=== PATIENT | male | born 1960 | race Caucasian/White ===

== ENCOUNTER 2016-10-29 06:33 | Emergency (ER) | payer MEDICARE, OTHER ==
--- NOTE | ~2016-10-29 | CT4 ---
[facility] A Service of [facility] RADIOLOGY TEXT RESULTS PATIENT: FRANK HUGGINS LOCATION: SED : 56 UNIT #: [id number] AGE: [address]: Talib Sainz MD SEX: M ORDER DR: [id number] [address] [address] [id number] E MR#: [id number] Acc #: [id number] NAME: FRANK HUGGINS : 1960 SEX: M STUDY DATE/TIME: 10/29/2016 6:37 UNIT: SED ROOM: STUDY DESCRIPTION: CT Abd and Pelv Wo Cont Attending Physician: Talib Sainz M.D. Ordering Physician: Talib Sainz M.D. Primary Care Physician: Chitra Bean M.D. MEDICAL IMAGING REPORT This report is preliminary unless electronic signature is present. EXAM CT of the abdomen and pelvis without contrast dated 10/29/[address] abdomen and pelvis without contrast dated 11/12/2015. HISTORY Bilateral flank pain for a few days. TECHNIQUE CT of the abdomen and pelvis were obtained without IV or oral contrast in the axial plane followed by sagittal and coronal reformats. This CT exam was performed with one or more of the following radiation dose reduction techniques: automatic exposure control, adjustment of mA and/or kV according to patient size, and iterative reconstruction. FINDINGS There is a 4.9 cm wide neck umbilical hernia sac which contains fat and 2 tiny bowel loops which partly extend into the nearby sac without any evidence of bowel obstruction. There is no free fluid in the peritoneum or within the hernia sac. No renal obstructing stones, hydronephrosis, or hydroureters. There is a nonobstructing punctate 1-2 mm calcification in the left superior renal calyx and anterior and inferior right renal calyx. Hypodense superior right renal and 3 left renal (superior and mid left kidney) are noted. The relatively larger one is in the superior and anterior left kidney measuring 2.5 x 3.0 cm. They have no Hounsfield units favoring simple cysts. They were also noted in the study from last year. The liver, spleen, adrenal glands, and pancreas do not demonstrate any significant abnormality. Aortoiliac stents are noted without contrast. Their patency is difficult to evaluate. There appears to be narrowed at the inferior aspect of the iliac portion, particularly on the right. Lack of oral contrast limits evaluation of bowel loops and lack of IV contrast limits evaluation of solid organs. There is a small hypodense STS. [facility] A Service of [facility] RADIOLOGY TEXT RESULTS PATIENT: FRANK HUGGINS LOCATION: [place] : 56 UNIT #: [id number] AGE: [address]: Talib Sainz MD SEX: M ORDER DR: 4.5 mm area in one of the small bowel loops in the right side of the lower abdomen close to the pelvis. It is noted on series 2, image 137. It could represent a small air pocket but a tiny lipoma in this region cannot be completely excluded given the slight difference in density. No obvious bowel obstruction, free fluid, or free air intraperitoneally. No evidence of acute significant diverticulitis, lymphadenopathy, or aneurysmal dilatation. No evidence of acute inflammatory to suggest acute appendicitis in the right lower quadrant. Well-defined appendix is difficult to visualize. Status post cholecystectomy. Degenerative changes are noted in the lumbar spine, severe at L4-5 with canal stenosis, bilateral facet changes, bilateral lateral recess stenosis, and neural foraminal narrowing. PELVIS: Urinary bladder is decompressed and its wall is uniformly thickened. Prostatic calcifications are noted and the prostate measures 4.1 x 4.5 cm. Seminal vesicles are within normal limits. Bowel loops do not demonstrate any significant abnormality. Incidentally noted is a 7 mm calcification in the left paramidline anterior pelvic fatty soft tissue. Benign incidental appearance. IMPRESSION 1. Nonobstructing punctate calcifications are noted, one in each kidney suggestive of nonobstructing stones. 2. Bilateral renal lesions are noted which are probably simple cysts. 3. There is a large fatty hernia in the umbilical region with a neck of 4.9 cm. It has predominantly fatty components with small 2 segments of bowel loops extending into it without evidence of bowel obstruction. 4. Degenerative changes are noted in the lumbar spine, worse at L4-5. 5. There is a small hypodense 4.5 mm area in one of the small bowel loops in the right side of the lower abdomen close to the pelvis. It is noted on series 2, image 137. It could represent a small air pocket but a tiny lipoma in this region cannot be completely excluded given the slight difference in density. It is, however, not clearly seen on the prior CT from 2016 and, hence, it could represent volume averaging of air. Attention to this region is suggested and follow-up studies is obtained in the future. Dictated by... Chaitanya Mejia M.D. THIS IS AN ELECTRONICALLY VERIFIED REPORT Chaitanya Mejia M.D. at 10/29/2016 4:55 PM CPR/aa [facility] A Service of [facility] RADIOLOGY TEXT RESULTS PATIENT: FRANK HUGGINS LOCATION: [place] : 56 UNIT #: [id number] AGE: [address]: Talib Sainz MD SEX: M ORDER DR: TD: 10/29/2016 09:49 JOB #: [id number] MEDICAL IMAGING REPORT Page 1 of 1
[2016-10-29 06:20] LABS: URINE SOURCE CLEAN CATCH
[2016-10-29 06:23] LABS: MICRO INDICATED? NO; URINE APPEARANCE CLEAR; URINE BILIRUBIN NEG (NEG); URINE BLOOD NEG (NEG); URINE COLOR YELLOW; URINE GLUCOSE NEG (NORM); URINE KETONE NEG (NEG); URINE LEUKOCYTE ESTERASE NEG (NEG); URINE NITRATE NEG (NEG); URINE PROTEIN NEG (NEG); URINE SPECIFIC GRAVITY <=1.005 (1.003-1.035); URINE UROBILINOGEN 0.2 MG/DL (NORM)
[~2016-10-29 06:33] MED LIST: ALPRAZOLAM; ALPRAZOLAM ER1 MG PO; ALPRAZOLAM1 MG PO; AMOXICILLIN; ANTIBIOTIC; APRISO0.375 GM; APRISO0.375 GM PO; ASACOL400 MG PO; ASPIRIN81 M1 PO; ASPIRIN81 M2 PO; ASTELIN137 MCG INH; BACLOFEN10 MG PO; BACTROBAN22 GM TP; BENTYL10 MG PO; BYSTOLIC10 MG; BYSTOLIC10 MG PO; BYSTOLIC2.5 MG PO; BYSTOLIC5 MG PO; CIPRO PO; CLARINEX5 MG PO; CLARITIN10 M3; CYANOCOBAL1000 MCG/M INJ; CYANOCOBALAM1000 MCG INJ; FLEXERIL PO; FLOMAX0.4 M1 PO; HYDROCODON-ACE1 EAC5 PO; HYDROCODONE-APA1 T30 PO; IMURAN50 MG PO; KEPPRA1000 MG PO; KEPPRA500 M1 PO; LEVETIRACETAM1000 MG; LEVETIRACETAM1000 MG PO; LIPITOR; LIPITOR PO; LORTAB 7.5-5001 TAB PO; LOTENSIN HCT 101 TAB PO; LOTENSIN PO; MECLIZINE HCL12.5 MG PO; MONTELUKAST SOD10 MG PO; NASAL RINSE; NASONEX17 GM; NORCO 10-325 TA1 TAB; NORCO 10/3251 TAB PO; NORVASC; OMEPRAZOLE20 M2 PO; OPANA ER10 M1; OXYCODONE-ACET1 EAC1 PO; PHENERGAN25 MG PO; PLAVIX; PLAVIX PO; PREDNISONE PO; PREVACID PO; PRILOSEC PO; PRILOSEC20 MG; PRILOSEC20 MG PO; SINGULAIR; SINGULAIR PO; VICODIN PO; VITAL-D RX TABL1 TAB PO; VITAMIN B-121000 MC1 INJ; VITAMIN B12; VITAMIN D350000 UNIT PO; VITAMIN D5000 UNIT PO; VITAMIN D50000 UNIT PO; XANAX1 MG PO; ZETIA; ZETIA PO; [UNRECOGNIZED DRUG - REMARK]
[2016-12-13] MEDS ORDERED: HYDROCODON-ACE1 EAC5 PO (10:14)
[2016-12-13] MEDS ORDERED: FLONASE 0.05% N16 GM INH (18:52)
[2016-12-13] MEDS ORDERED: MONTELUKAST SOD10 MG PO (18:52)
[2016-12-13] MEDS ORDERED: ALBUTEROL17 GM INH (18:53)
[2016-12-13] MEDS ORDERED: SPIRIVA RESPIMAT4 G1 INH (18:54)
[2016-12-13] MEDS ORDERED: BYSTOLIC10 MG PO (18:54)
[2016-12-13] MEDS ORDERED: ATORVASTATIN CA10 MG PO (18:56)
[2016-12-13] MEDS ORDERED: XANAX1 MG PO (18:57)
[2016-12-13] MEDS ORDERED: DESLORATADINE5 MG PO (18:58)
[2016-12-13] MEDS ORDERED: KEPPRA1000 MG PO (19:02)
[2016-12-13] MEDS ORDERED: ASPIRIN81 MG PO (19:02)
[2016-12-13] MEDS ORDERED: OMEPRAZOLE20 M1 PO (19:02)
== END 2016-10-29 08:14 | disposition home or self-care (01) ==
LOC: SED 06:33
PROVIDERS: Emergency Medicine
DX: M54.5 Low back pain (principal); Z88.5 Allergy status to narcotic agent; Z88.2 Allergy status to sulfonamides; Z88.8 Allergy status to other drugs, medicaments and biological substances; Z79.899 Other long term (current) drug therapy
CPT/HCPCS: 74176; 81003; 99284

== ENCOUNTER → 2016-12-04 | Outpatient (CLI) | payer MEDICARE ==
[~2016-12-04] MED LIST changes: +ALBUTEROL17 GM INH; +ASPIRIN81 MG PO; +ATORVASTATIN CA10 MG PO; +DESLORATADINE5 MG PO; +FLONASE 0.05% N16 GM INH; +OMEPRAZOLE20 M1 PO; +SPIRIVA RESPIMAT4 G1 INH
--- NOTE | ~2016-12-04 | CT2 ---
[facility] A Service of [facility] RADIOLOGY TEXT RESULTS PATIENT: FRANK HUGGINS LOCATION: [facility] : 56 UNIT #: [id number] AGE: [address]: JEN MINAYA APRN SEX: M ORDER DR: [id number] [id number] [facility]. [place], [place] [address] [id number] O MR#: [id number] [facility] #: [id number] NAME: FRANK HUGGINS. : 1960 SEX: M STUDY DATE/TIME: 12/04/2016 12:02 UNIT: [facility] ROOM: STUDY DESCRIPTION: CT Abd and Pelv W Cont Attending Physician: Jen Minaya Aprn Referring Physician: Jen Minaya Aprn Ordering Physician: Jen Minaya Aprn Primary Care Physician: Chitra Bean M.D. MEDICAL IMAGING REPORT This report is preliminary unless electronic signature is present EXAM CT abdomen and pelvis with contrast INDICATION Bloating and diarrhea for 1 week as well as right quadrant and left lower quadrant pain for 1 week. TECHNIQUE Axial Images were obtained through the dome of the diaphragm through symphysis pubis following administration of oral and intravenous contrast material. This CT exam was performed with one or more of the following radiation dose reduction techniques: automatic exposure control, adjustment of mA and/or kV according to patient size, and iterative reconstruction. Please note this examination was performed as a nonemergent outpatient study on 12/04/16 at 12:02 p.m. The patient apparently has presented to the emergency department, and a STAT read of this examination has been requested. FINDINGS Images through the lung bases are clear with exception of calcified granuloma and some minimal atelectasis. The stomach and proximal small bowel are within normal limits as are the adrenal glands and spleen. Pancreas also appears normal. The patient does have diffuse hepatic steatosis, but no focal hepatic lesions are seen. Gallbladder is surgically absent. Low-attenuation lesions are identified within the kidneys some of which are too small to accurately characterize but the largest of which appear to be benign renal cysts. This patient is status post aortobifemoral bypass grafting. This graft does appear to be STS. [facility] A Service of [facility] RADIOLOGY TEXT RESULTS PATIENT: FRANK HUGGINS LOCATION: [facility] : 56 UNIT #: [id number] AGE: [address]: JEN MINAYA [employer] CONSULTANT SEX: M ORDER DR: patent. 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 Prostate gland contains dystrophic calcifications. There is a fat-containing supraumbilical hernia with an additional hernia seen at the level of the umbilicus. Patient does have a loop of bowel, partially protruding into this area without evidence of obstruction. The patient has fatty infiltration of the wall of the terminal ileum. This finding can be seen in the setting of chronic inflammatory bowel disease. Similar findings were present in October 2016 as well. It was probably present in the mid 2015, but was less apparent at that time. Process does not appear to be resulting in any obstruction. I do not see any free fluid or adenopathy within the pelvis, and there is no pneumatosis or free air. Remainder of the GI tract appears unremarkable. The appendix is surgically absent. There is really minimal soft tissue stranding identified within the right lower quadrant; but given history, an active component of inflammation should certainly be considered. Review of bony windows. Does not demonstrate any aggressive osseous abnormalities. The patient does have some atherosclerotic plaque seen at the origins of the celiac axis and superior mesenteric artery which is incompletely evaluated on this examination as it is not an angiographic protocol CT. IMPRESSION 1. This patient is noted to have some fatty infiltration of the wall of the terminal ileum. This finding can be seen in the setting of chronic inflammatory bowel disease. Correlation with patient's history is recommended. I do not see any zulay bowel inflammatory stranding to suggest a superimposed acute process but certainly this cannot be excluded given patient's history, MRI would be more sensitive for evaluation of active inflammation and could be considered on a non emergent outpatient basis. At this point, there is no evidence of obstruction related to this process. No pneumatosis or free air is seen. There is no free fluid identified within the right lower quadrant or within the pelvis. 2. Diffuse hepatic steatosis makes the appendix and gallbladder surgically absent. 3. Changes of prior aortobifemoral bypass grafting. 4. Suspected bilateral renal cysts. 5. Please see the body of the report for any other additional incidental findings Dictated by... Carley Silva M.D. THIS IS AN ELECTRONICALLY VERIFIED REPORT Carley Silva M.D. at 12/06/2016 4:50 PM [facility] A Service of [facility] RADIOLOGY TEXT RESULTS PATIENT: FRANK HUGGINS LOCATION: [facility] : 56 UNIT #: [id number] AGE: [address]: JEN MINAYA APRN SEX: M ORDER DR: Alex TD: 12/05/2016 13:41 JOB #: [id number] MEDICAL IMAGING REPORT Page 1 of 1 COPY
[2016-12-04 14:06] LABS: POC - CREATININE 1.08 mg/dL (0.64-1.27); POC - GFR >60.0 mL/min (>60)
== END | disposition home or self-care (01) ==
LOC: CCAT 10:55
PROVIDERS: Nurse Practitioner Family
DX: K46.9 Unspecified abdominal hernia without obstruction or gangrene (principal); K76.0 Fatty (change of) liver, not elsewhere classified; Z90.49 Acquired absence of other specified parts of digestive tract; Z98.890 Other specified postprocedural states
CPT/HCPCS: 74177; 82565; Q9967

== ENCOUNTER 2016-12-05 06:58 | Emergency (ER) | payer MEDICARE ==
--- NOTE | ~2016-12-05 | CR2 ---
[facility] A Service [facility] RADIOLOGY TEXT RESULTS PATIENT: FRANK HUGGINS LOCATION: [facility] : 56 UNIT #: [id number] AGE: [address]: Flaco Newberry MD SEX: M ORDER DR: [id number] [place] [id number] [facility]. [place], [place] [address] [id number] E MR#: [id number] Acc #: [id number] NAME: FRANK HUGGINS : 1960 SEX: M STUDY DATE/TIME: 12/05/2016 8:54 UNIT: [facility] ROOM: STUDY DESCRIPTION: CR Abdomen Acute Series Attending Physician: Flaco Newberry M.D. Ordering Physician: Flaco Newberry M.D. Primary Care Physician: Chitra Bean M.D. MEDICAL IMAGING REPORT This report is preliminary unless electronic signature is present EXAM Acute abdominal series INDICATION Abdominal pain, nausea and diarrhea. FINDINGS On the upright chest radiograph, heart size is within normal limits. Patient has chronic-appearing scarring identified within the right mid lung. No pneumothorax, pleural effusion or acute infiltrate is seen. No free air is seen beneath the diaphragm. Cholecystectomy clips are seen within the right upper quadrant. Patient has oral contrast material seen throughout the colon. Patient underwent a CT scan of the abdomen and pelvis on December 04, 2016 and this contrast is related to that. Currently, there is no evidence of mechanical bowel obstruction. IMPRESSION No acute intraabdominal or intrapelvic process is seen. Please see the separately dictated report for the patient's CT of the abdomen and pelvis performed yesterday. Dictated by... Carley Silva M.D. THIS IS AN ELECTRONICALLY VERIFIED REPORT Carley Silva M.D. at 12/06/2016 4:49 PM AFF/dominik TD: 12/05/2016 14:52 JOB #: [id number] [facility] A Service [facility] RADIOLOGY TEXT RESULTS PATIENT: FRANK HUGGINS LOCATION: [facility] #: [id number] : 56 UNIT #: [id number] AGE: [address]: Flaco Newberry MD SEX: M ORDER DR: MEDICAL IMAGING REPORT Page 1 of 1 COPY
[~2016-12-05 06:58] MED LIST changes: -ALBUTEROL17 GM INH; -ASPIRIN81 MG PO; -ATORVASTATIN CA10 MG PO; -DESLORATADINE5 MG PO; -FLONASE 0.05% N16 GM INH; -OMEPRAZOLE20 M1 PO; -SPIRIVA RESPIMAT4 G1 INH
[2016-12-05 07:40] LABS: BASOPHIL# 0.1 X10e3 (0-0.3); BASOPHIL% 0.8 % (0-2.5); EOSINOPHIL# 0.1 X10e3 (0-0.7); EOSINOPHIL% 1.4 % (0.0-7.0); HEMATOCRIT 47.3 % (38.0-50.0); HEMOGLOBIN 15.9 gm/dL (13.0-16.0); LYMPHOCYTE% 19.1 % (17.0-45.0); MEAN CELL VOLUME 89.9 FL (83-96); MEAN CORPUSCULAR HEMOGLOBIN 30.2 PG (28-34); MEAN CORPUSCULAR HGB CONC 33.6 g/dL (30-36); MONOCYTE# 0.8 X10e3 (0-1.0); MONOCYTE% 7.8 % (3.0-12.0); NEUTROPHIL# 7.2 X10e3 (1.5-7.1); NEUTROPHIL% 70.9 % (40-75); PLATELET COUNT 233 X10e3 (140-420); RED BLOOD COUNT 5.26 X10e (3.90-5.60); RED CELL DISTRIBUTION WIDTH 13.8 % (11.0-15.5); WHITE BLOOD COUNT 10.2 X10e3 (4.0-10.5)
[2016-12-05 07:41] LABS: DIFF IND NO
[2016-12-05 08:02] LABS: ALBUMIN SERUM 3.7 g/dL (3.5-5.0); BILIRUBIN, DIRECT 0.1 mg/dL (0.0-0.2); BILIRUBIN,INDIRECT 0.5 mg/dL (0.0-0.9); BILIRUBIN,TOTAL 0.6 mg/dL (0.2-2.0); CALCIUM SERUM 9.2 mg/dL (8.4-10.2); GLOM FILT RATE Estimated 82.6 mL/min (>60); POTASSIUM 3.3 mmol/L (3.5-5.1); PROTEIN TOTAL SERUM 7.6 g/dL (6.0-8.3)
[2016-12-05 08:52] LABS: URINE SOURCE CLEAN CATCH
[2016-12-05 08:59] LABS: URINE APPEARANCE CLEAR; URINE BILIRUBIN NEG (NEG); URINE BLOOD NEG (NEG); URINE COLOR YELLOW; URINE GLUCOSE NEG (NEG); URINE KETONE NEG (NEG); URINE LEUKOCYTE ESTERASE NEG (NEG); URINE NITRATE NEG (NEG); URINE PH 5.5 (5-8); URINE PROTEIN NEG (NEG); URINE SPECIFIC GRAVITY 1.015 (1.003-1.035); URINE UROBILINOGEN 0.2 MG/DL (NEG)
[2016-12-05 09:10] LABS: CULTURE INDICATED? NO
[2016-12-13] MEDS ORDERED: HYDROCODON-ACE1 EAC5 PO (10:14)
[2016-12-13] MEDS ORDERED: MONTELUKAST SOD10 MG PO (18:52)
[2016-12-13] MEDS ORDERED: FLONASE 0.05% N16 GM INH (18:52)
[2016-12-13] MEDS ORDERED: ALBUTEROL17 GM INH (18:53)
[2016-12-13] MEDS ORDERED: BYSTOLIC10 MG PO (18:54)
[2016-12-13] MEDS ORDERED: SPIRIVA RESPIMAT4 G1 INH (18:54)
[2016-12-13] MEDS ORDERED: ATORVASTATIN CA10 MG PO (18:56)
[2016-12-13] MEDS ORDERED: XANAX1 MG PO (18:57)
[2016-12-13] MEDS ORDERED: DESLORATADINE5 MG PO (18:58)
[2016-12-13] MEDS ORDERED: KEPPRA1000 MG PO (19:02)
[2016-12-13] MEDS ORDERED: ASPIRIN81 MG PO (19:02)
[2016-12-13] MEDS ORDERED: OMEPRAZOLE20 M1 PO (19:02)
== END 2016-12-05 10:00 | disposition home or self-care (01) ==
LOC: CED 06:58
PROVIDERS: Emergency Medicine
DX: R10.84 Generalized abdominal pain (principal); R11.2 Nausea with vomiting, unspecified; R19.7 Diarrhea, unspecified; J44.9 Chronic obstructive pulmonary disease, unspecified; I73.9 Peripheral vascular disease, unspecified; Z88.1 Allergy status to other antibiotic agents; Z88.8 Allergy status to other drugs, medicaments and biological substances
CPT/HCPCS: 74022; 80048; 80076; 81003; 82150; 83605; 83690; 85025; 96361; 96374; 96375; 99284; J1885; J2270; J2405

== ENCOUNTER → 2016-12-10 | Outpatient (CLI) | payer MEDICARE ==
[~2016-12-10] MED LIST changes: +ALBUTEROL17 GM INH; +ASPIRIN81 MG PO; +ATORVASTATIN CA10 MG PO; +DESLORATADINE5 MG PO; +FLONASE 0.05% N16 GM INH; +OMEPRAZOLE20 M1 PO; +SPIRIVA RESPIMAT4 G1 INH
[2016-12-10 10:49] LABS: HEMOGLOBIN 15.9 gm/dL (13.0-16.0); MEAN CELL VOLUME 90.1 FL (83-96); MEAN CORPUSCULAR HEMOGLOBIN 29.9 PG (28-34); MEAN CORPUSCULAR HGB CONC 33.1 g/dL (30-36); MEAN PLATELET VOLUME 7.8 FL (6.5-11.5); RED BLOOD COUNT 5.33 X10e (3.90-5.60); RED CELL DISTRIBUTION WIDTH 13.9 % (11.0-15.5); WHITE BLOOD COUNT 8.6 X10e3 (4.0-10.5)
[2016-12-10 10:58] LABS: URINE APPEARANCE CLEAR; URINE BILIRUBIN NEG (NEG); URINE BLOOD NEG (NEG); URINE COLOR YELLOW; URINE GLUCOSE NEG (NEG); URINE KETONE NEG (NEG); URINE LEUKOCYTE ESTERASE NEG (NEG); URINE NITRATE NEG (NEG); URINE PROTEIN NEG (NEG); URINE SPECIFIC GRAVITY 1.007 (1.003-1.035); URINE UROBILINOGEN 0.2 MG/DL (NEG)
[2016-12-10 11:19] LABS: URINE SOURCE CLEAN CATCH
[2016-12-10 11:33] LABS: ALBUMIN SERUM 3.8 g/dL (3.5-5.0); BILIRUBIN,TOTAL 0.8 mg/dL (0.2-2.0); BUN/CREATININE RATIO 11.25; CALCIUM SERUM 9.3 mg/dL (8.4-10.2); CREATININE SERUM 0.8 mg/dL (0.6-1.4); GLOM FILT RATE Estimated 98.5 mL/min (>60); POTASSIUM 4.1 mmol/L (3.5-5.1); PROTEIN TOTAL SERUM 6.9 g/dL (6.0-8.3)
== END | disposition home or self-care (01) ==
LOC: CLAB 10:00
PROVIDERS: Nurse Practitioner
DX: R10.31 Right lower quadrant pain (principal); R19.7 Diarrhea, unspecified; R11.2 Nausea with vomiting, unspecified
CPT/HCPCS: 36415; 80053; 81003; 83630; 85027; 87328; 87329; 87493

== ENCOUNTER → 2016-12-13 | Day surgery (SDC) | payer MEDICARE, OTHER ==
--- NOTE | ~2016-12-13 | OR ---
Unit #: [id number] #: [id number] Patient: FRANK HUGGINS [id number] [place], [place] [address] [id number] O MR#: [id number] NAME: FRANK HUGGINS ROOM: Date of Procedure: 12/13/2016 Admission Date: 12/13/2016 Surgeon: Junito Schulz M.D. : 1960 Attending Physician: Junito Schulz M.D. Primary Care Physician: Chitra Bean M.D. OPERATIVE REPORT PREOPERATIVE DIAGNOSES Dyspepsia, diarrhea, left and right lower quadrant abdominal pain. In addition, the patient has abnormal gastrointestinal x-ray. PROCEDURES PERFORMED Upper gastrointestinal endoscopy and biopsy as well as colonoscopy with polypectomy and colonoscopy with biopsies. POSTOPERATIVE DIAGNOSES For upper endoscopy: 1. The patient had moderate prepyloric antral erosive gastritis. This was fairly diffuse. 2. Rest of the examination up to third part of duodenum was normal. A biopsy was obtained from the antrum for CLOtest. In addition, biopsies were also obtained from the deep descending duodenal folds to look for any evidence of partial villous atrophy or celiac disease. For colonoscopy: 1. A single sessile polyp in the mid sigmoid colon. This was about 7 to 8 mm in size and was removed using snare polypectomy. 2. Mild sigmoid and descending colon diverticulosis. 3. Rest of the examination up to cecum and terminal ileum was normal. Multiple random colonic biopsies were obtained from throughout the colon to rule out microscopic or collagenous colitis. RECOMMENDATIONS The patient will be started on p.r.n. Lomotil. He will be followed up in the office in 3 months' time. SEDATION USED MAC. DESCRIPTION OF PROCEDURE Following detailed explanation of the potential risks and complications of an upper endoscopy and a colonoscopy, namely perforation, bleeding, and complications related to sedation, the patient was brought to GI lab and laid in the left lateral decubitus position. Lubricated tip of the Olympus video upper endoscope was passed through the bite block into the proximal esophagus under direct vision. The entire esophageal mucosa was examined and appeared normal. Z-line was nicely demarcated, there being no esophagitis or hiatus hernia. The scope was then advanced into the gastric cavity and the latter was insufflated. Mucosa of the fundus, body, and antrum was examined and the patient was noted to have moderate Unit #: [id number] #: [id number] Patient: FRANK HUGGINS prepyloric antral diffuse erythema, erosions, and gastritis. Pylorus was intubated with visualization of the normal duodenal bulb and second and third part of the duodenum. Upon withdrawal and retroflexion, incisura, cardia, and greater curve was examined and a biopsy obtained from the antrum for CLOtest. In addition, biopsies were also obtained from the deep descending duodenal folds to look for any evidence of partial villous atrophy or celiac disease. The scope was then withdrawn in the distal esophagus. The entire esophageal mucosa was examined all the way up to pharynx, no additional findings were noted. The examination table was then turned by 180 degrees and the patient positioned for a colonoscopy. A digital rectal examination was performed, which was normal. Lubricated tip of the Olympus video colonoscope was inserted through the anus and advanced under direct vision. The scope was advanced past rectosigmoid into descending colon. Scant small diverticula were noted in this area. The scope tip was then navigated all the way up to cecum with visualization of the ileocecal valve and the appendiceal orifice. Preparation was excellent with good visualization and photodocumentation was obtained. Last few inches of the terminal ileum were also visualized after intubation of the ileocecal valve and appeared normal. Successive segments of the colonic mucosa were examined upon withdrawal and appeared unremarkable except for a single sessile polyp in the mid sigmoid colon. The latter was about 8 mm in size and it was removed using snare polypectomy. No additional polyps were noted. Other than the scant diverticula, no other abnormalities were noted. Multiple random colonic biopsies were obtained from throughout the colon to rule out microscopic or collagenous colitis. The patient did have small internal hemorrhoids at the anal verge. The scope was then withdrawn and the patient returned to the recovery area. He tolerated the procedure without any postprocedure complications. Dictated byAmadeo Mcdaniel TD: 12/13/2016 14:19 JOB #: [id number] OPERATIVE REPORT Page 1 of 1 X Junito Schulz MD PROCEDURE OPERATIVE NOTE
== END | disposition home or self-care (01) ==
LOC: COPS 07:00
PROVIDERS: Internal Medicine Gastroenterology
PROC: 0DB78ZX Excision of Stomach, Pylorus, Via Natural or Artificial Opening Endoscopic, Diagnostic (ICD-10-PCS; principal; 2016-12-13 10:30)
PROC: 0DB98ZX Excision of Duodenum, Via Natural or Artificial Opening Endoscopic, Diagnostic (ICD-10-PCS; 2016-12-13 10:30)
PROC: 0DBN8ZX Excision of Sigmoid Colon, Via Natural or Artificial Opening Endoscopic, Diagnostic (ICD-10-PCS; 2016-12-13 10:30)
PROC: 0DBE8ZX Excision of Large Intestine, Via Natural or Artificial Opening Endoscopic, Diagnostic (ICD-10-PCS; 2016-12-13 10:30)
DX: K29.60 Other gastritis without bleeding (principal); K29.80 Duodenitis without bleeding; K63.5 Polyp of colon; K57.30 Diverticulosis of large intestine without perforation or abscess without bleeding; K64.8 Other hemorrhoids; N40.0 Benign prostatic hyperplasia without lower urinary tract symptoms; J44.9 Chronic obstructive pulmonary disease, unspecified; K21.9 Gastro-esophageal reflux disease without esophagitis; F17.200 Nicotine dependence, unspecified, uncomplicated; I73.9 Peripheral vascular disease, unspecified; G40.89 Other seizures; G89.29 Other chronic pain; M54.9 Dorsalgia, unspecified; Z95.820 Peripheral vascular angioplasty status with implants and grafts; Z79.899 Other long term (current) drug therapy; Z79.891 Long term (current) use of opiate analgesic; Z87.442 Personal history of urinary calculi; Z90.49 Acquired absence of other specified parts of digestive tract; Z98.890 Other specified postprocedural states; Z88.5 Allergy status to narcotic agent; Z88.4 Allergy status to anesthetic agent; Z88.2 Allergy status to sulfonamides
CPT/HCPCS: 87077; 88305

== ENCOUNTER 2017-02-13 19:39 | Emergency (ER) | payer MEDICARE, OTHER ==
[~2017-02-13] VITALS: Ht 170.2 cm; Wt 95.2 kg
--- NOTE | ~2017-02-13 | CR72 ---
[facility] A Service of [facility] RADIOLOGY TEXT RESULTS PATIENT: FRANK HUGGINS LOCATION: [place] : 56 UNIT #: [id number] AGE: [address]: Dede Contreras MD SEX: M ORDER DR: [id number] [address] [address] [id number] E MR#: [id number] Acc #: [id number] NAME: FRANK HUGGINS : 1960 SEX: M STUDY DATE/TIME: 02/13/2017 19:58 UNIT: SED ROOM: STUDY DESCRIPTION: CR Chest Single View Portable Attending Physician: Dede Contreras M.D. Ordering Physician: Dede Contreras M.D. MEDICAL IMAGING REPORT This report is preliminary unless electronic signature is present. EXAM AP portable chest DATE: 02/13/2017 HISTORY 56-year-old male with chest pain and shortness breath 30 minutes prior to arrival. 25-year smoking history. COMPARISON PA lateral chest radiograph 07/27/2016. CT chest 08/10/2016. FINDINGS Chronic-appearing interstitial thickening is present in the lower lung zones, similar to the 07/27/2016 chest radiograph, thought to represent a chronic finding. Emphysematous changes in the upper lobe is demonstrated better advantage on the previous 08/10/2016 CT chest. Heart size within normal limits. No pleural effusion or pneumothorax. IMPRESSION Emphysematous changes. No acute chest findings. No significant change from 07/27/2016. Dictated by... Wanda Agrawal M.D. THIS IS AN ELECTRONICALLY VERIFIED REPORT Wanda Agrawal M.D. at 02/14/2017 9:56 AM BOBY/veronika TD: 02/14/2017 00:56 [facility] A Service of [facility] RADIOLOGY TEXT RESULTS PATIENT: FRANK HUGGINS LOCATION: [place] : 56 UNIT #: [id number] AGE: [address]: Dede Contreras MD SEX: M ORDER DR: JOB #: [id number] MEDICAL IMAGING REPORT Page 1 of 1
--- NOTE | ~2017-02-13 | CT16 ---
[facility] A Service of [facility] RADIOLOGY TEXT RESULTS PATIENT: FRANK HUGGINS LOCATION: [facility] : 56 UNIT #: [id number] AGE: [address]: Dede Contreras MD SEX: M ORDER DR: [id number] [address] [address] [id number] E MR#: [id number] Acc #: [id number] NAME: FRANK HUGGINS : 1960 SEX: M STUDY DATE/TIME: 02/13/2017 20:58 UNIT: SED ROOM: STUDY DESCRIPTION: CT Angio Chest for PE Attending Physician: Dede Contreras M.D. Ordering Physician: Dede Contreras M.D. MEDICAL IMAGING REPORT This report is preliminary unless electronic signature is present. EXAM CTA chest with contrast, pulmonary embolism protocol. DATE: 02/13/2017 HISTORY Chest pain 30 minutes prior to arrival. Elevated D-dimer level. COMPARISON AP portable chest 02/13/2017 at 19:58. CT chest without contrast 08/10/2016. PROCEDURE 2 mm axial images through the chest after IV contrast administration in the arterial phase. 3-D coronal MIP reformatted images were obtained. This CT exam was performed with one or more of the following radiation dose reduction techniques: automatic exposure control, adjustment of mA and/or kV according to patient size, and iterative reconstruction. FINDINGS No pulmonary embolism, aortic aneurysm or aortic dissection is seen. Benign partially calcified lymph nodes are present within the mediastinum. Calcified granulomatous changes are present within the right lower lobe. Noncalcified nodule in the posterior right upper lobe (series 5 image 55) measures 7 mm, and is unchanged from more remote CT chest from 05/14/2015, with over 2 years of stability, confirming benignity. No new pulmonary nodules are identified. No acute airspace disease. Moderate emphysema. Hepatic steatosis. Small bilateral renal cysts noted. No acute osseous abnormalities are identified. [facility] A Service [facility] RADIOLOGY TEXT RESULTS PATIENT: FRANK HUGGINS LOCATION: [facility] #: [id number] : 56 UNIT #: [id number] AGE: [address]: BenDede Eyal OLGUIN SEX: M ORDER DR: IMPRESSION 1. No acute chest findings. No pulmonary embolism. 2. No acute airspace disease. 3. Moderate emphysema. 4. 7 mm noncalcified nodule in the right upper lobe is stable since 05/14/2015, confirming over 2 years of stability and benignity. 5. No acute airspace disease. 6. Hepatic steatosis. Cholecystectomy. Dictated by... Wanda Agrawal M.D. THIS IS AN ELECTRONICALLY VERIFIED REPORT Wanda Agrawal M.D. at 02/14/2017 9:56 AM BOBY/veronika TD: 02/14/2017 04:00 JOB #: [id number] MEDICAL IMAGING REPORT Page 1 of 1
--- NOTE | ~2017-02-13 | EKG ---
PATIENT: FRANK HUGGINS UNIT #: [id number] Ventricular Rate: 69 BPM Atrial Rate: 69 BPM P-R Interval: 124 ms QRS Duration: 86 ms Q-T Interval: 378 ms QTC Calculation(Bezet): 405 ms P [place]: 50 degrees Calculated R [place]: 10 degrees Calculated T [place]: 35 degrees Diagnosis Line: Normal sinus rhythm Diagnosis Line: Normal ECG Diagnosis Line: When compared with ECG of 29-SEP-2015 12:48, Diagnosis Line: No significant change was found Diagnosis Line: Confirmed by ZACK ZHU MD ([id number]) on Diagnosis Line: 02/16/2017 8:23:04 AM INTERPRETING MD: AUDRA OLGUIN
[2017-02-13 20:02] LABS: BASOPHIL# 0.1 X10e3 (0-0.3); BASOPHIL% 0.9 % (0-2.5); DIFF IND NO; EOSINOPHIL# 0.1 X10e3 (0-0.7); EOSINOPHIL% 0.9 % (0.0-7.0); HEMATOCRIT 46.2 % (38.0-50.0); HEMOGLOBIN 15.5 gm/dL (13.0-16.0); LYMPHOCYTE# 2.9 X10e3 (1.0-3.5); LYMPHOCYTE% 24.9 % (17.0-45.0); MEAN CELL VOLUME 90.4 FL (83-96); MEAN CORPUSCULAR HEMOGLOBIN 30.2 PG (28-34); MEAN CORPUSCULAR HGB CONC 33.4 g/dL (30-36); MONOCYTE% 8.4 % (3.0-12.0); NEUTROPHIL# 7.5 X10e3 (1.5-7.1); NEUTROPHIL% 64.9 % (40-75); PLATELET COUNT 258 X10e3 (140-420); RED BLOOD COUNT 5.12 X10e (3.90-5.60); RED CELL DISTRIBUTION WIDTH 14.2 % (11.0-15.5); WHITE BLOOD COUNT 11.6 X10e3 (4.0-10.5)
[2017-02-13 20:14] LABS: PROTHROMBIN TIME (PATIENT) 11.4 SECONDS (9.5-12.4)
[2017-02-13 20:16] LABS: POC - CKMB <1.0 ng/mL (0.0-7.9); POC - MYOGLOBIN 87.5 ng/mL (0.0-169.0); POC - TROPONIN <0.05 ng/mL (<=0.05)
[2017-02-13 20:21] LABS: PARTIAL THROMBOPLASTIN TIME 24.5 SECONDS (25.6-38.1)
[2017-02-13 20:23] LABS: ALBUMIN SERUM 3.6 g/dL (3.5-5.0); BILIRUBIN, DIRECT 0.1 mg/dL (0.0-0.2); BILIRUBIN,INDIRECT 0.2 mg/dL (0.0-0.9); BILIRUBIN,TOTAL 0.3 mg/dL (0.2-2.0); BUN/CREATININE RATIO 10.9; CALCIUM SERUM 8.6 mg/dL (8.4-10.2); CREATININE SERUM 1.1 mg/dL (0.6-1.4); GLOM FILT RATE Estimated 73.6 mL/min (>60); MAGNESIUM 1.5 mg/dL (1.6-3.0); POTASSIUM 3.5 mmol/L (3.5-5.1); PROTEIN TOTAL SERUM 7.4 g/dL (6.0-8.3)
[2017-02-13 21:51] LABS: POC - CKMB <1.0 ng/mL (0.0-7.9); POC - MYOGLOBIN 56.2 ng/mL (0.0-169.0); POC - TROPONIN <0.05 ng/mL (<=0.05)
[2017-02-14 01:36] LABS: POC - CKMB <1.0 ng/mL (0.0-7.9); POC - MYOGLOBIN 62.7 ng/mL (0.0-169.0)
[2017-02-14 01:37] LABS: POC - TROPONIN <0.05 ng/mL (<=0.05)
== END 2017-02-14 01:54 | disposition home or self-care (01) ==
LOC: SED 19:39
PROVIDERS: Student in an Organized Health Care Education/Training Program
DX: R07.9 Chest pain, unspecified (principal); F41.9 Anxiety disorder, unspecified; I10 Essential (primary) hypertension; E83.42 Hypomagnesemia; J44.9 Chronic obstructive pulmonary disease, unspecified; J45.909 Unspecified asthma, uncomplicated; Z88.5 Allergy status to narcotic agent; Z88.8 Allergy status to other drugs, medicaments and biological substances; Z79.899 Other long term (current) drug therapy
CPT/HCPCS: 36415; 71010; 71275; 80048; 80076; 82553; 83735; 83874; 83880; 84484; 85025; 85379; 85610; 85730; 93005; 94640; 96365; 96366; 99285; J3475; Q9967